=== PATIENT | female | born 1965 | race Caucasian/White ===

== ENCOUNTER 2016-08-18 23:07 | Emergency (ER) | payer MEDICARE ==
[2016-08-19] MEDS ORDERED: GLUCAGON 1 MG VIAL ONE (00:15)
== END 2016-08-19 02:11 | disposition home or self-care (01) ==
LOC: ER 23:07
DX: T18.128A Food in esophagus causing other injury, initial encounter (principal); E11.21 Type 2 diabetes mellitus with diabetic nephropathy; Z79.4 Long term (current) use of insulin; I10 Essential (primary) hypertension
CPT/HCPCS: 36415; 70360; 80048; 82947; 85025; 96372; 99283; J1610